=== PATIENT | male | born 2000 | race Caucasian/White ===

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

== ENCOUNTER 2022-05-03 18:28 | Emergency (ER) | payer OTHER, SELFPAY ==
[2022-05-03 19:30] VITALS: RESP 20; TEMP 36.7; O2SAT 100; BMI 24.8
--- NOTE | 2022-05-03 19:32 | EXP.UTC ---
Discharge Plan Disposition Patient Disposition: Home, Self-Care Condition: Good Prescriptions Prescriptions: New sulfamethoxazole-trimethoprim [Bactrim DS] 800-160 mg Tablet 1 tab PO BID Qty: 20 0RF cephalexin 500 mg capsule 500 mg PO QID Qty: 40 0RF mupirocin 2 % ointment 1 applic topical TID 7 Days Qty: 22 0RF Referrals Follow up/Referrals: Bailey Hernandes APRN [Primary Care Provider] - See instructions Activity Restrictions/Add. Instructions Additional Instructions/Restrictions: Apply warm wet compresses to the affected sites three or four times per day for 15 minutes as tolerated. Take the antibiotics as directed and apply the topical antibiotics as directed Follow up with your regular doctor. GO TO THE ER FOR ANY WORSENING SYMPTOMS OR CONCERNS We cultured the wound. This takes 3 days to complete. It should tell which bacteria this is infected by and which antibiotic will treat it best. Please follow up in 3 days with your primary care provider for a wound recheck. Follow up sooner if it is getting worse instead of better. Clinical Impressions Clinical Impression: Abscess of face Stand Alone Forms Stand Alone Forms: Work/School Release Instructions Patient Instructions: Boil Discharge ED Provider: Adarsh Garcia [facility] General Stated complaint: poss bruising on face Time Seen by Provider: 05/03/22 19:32 History of Present Illness Provider Complaint: He states that for the past 4 days he has had a red swollen area on his right cheek. He states that it is getting more swollen and painful. He denies fever/chills. Related Data Previous Rx's Medication Instructions Recorded cephalexin 500 mg capsule 500 mg PO QID #40 caps 05/03/22 mupirocin 2 % topical ointment 1 applic topical TID 7 days #22 05/03/22 grams sulfamethoxazole 800 1 tab PO BID #20 tabs 05/03/22 mg-trimethoprim 160 mg tablet (Bactrim DS) Allergies Allergy/AdvReac Type Severity Reaction Status Date / Time No Known Allergies Allergy Verified 05/03/22 19:45 [facility] Disclaimer: The information contained in this section may have been updated after the patient was seen, as this information can be updated by other users. Medical History Allergic rhinitis Chronic headaches Social History Smoking Status: Former smoker alcohol intake: never counseling provided: none substance use type: marijuana current occupational status: student Travel in the last 8 weeks: None household members: family housing: house ROS Obtained: Yes All systems reviewed & no additional complaints except as documented Constitutional Constitutional: Denies chills and Denies fever(s) Eyes Eyes: Denies eye discharge ENT Ears, Nose, Mouth, and Throat: Denies dizziness, Denies otalgia and Denies sore throat Cardiovascular Cardiovascular: Denies chest pain Respiratory Respiratory: Denies shortness of breath, Denies chest congestion, Denies cough, Denies stridor and Denies wheezing Gastrointestinal Gastrointestingal: Denies nausea or vomiting Musculoskeletal Musculoskeletal: Reports system reviewed and no additional complaints, except as documented and Denies arthralgias Integumentary/Breasts Skin/Breast: Denies rash Neurologic Neurologic: Denies dizziness and Denies paresthesias Allergic/Immunologic Allergic/Immunologic: Denies wheezing Physical Exam General General appearance: alert and in no apparent distress Head Head exam: atraumatic, normocephalic and normal inspection Eye Eye exam: Present normal appearance, PERRL and EOMI ENT ENT exam: Present normal exam, normal oropharynx, mucous membranes moist, TM's normal bilaterally and normal external ear exam Neck Neck exam: Present normal inspection, full ROM and trachea midline; Absent meningismus or lymphadenopathy Chest Chest inspection: Present
[2022-05-03 20:29] VITALS: BP 0/0; PULSE 78; RESP 20; TEMP 36.7; O2SAT 100
== END 2022-05-03 20:20 | disposition home or self-care (01) ==
PROVIDERS: Emergency Provider Nurse Practitioner Family; PCP Nurse Practitioner Family
DX: L02.01 Cutaneous abscess of face (principal)
CPT/HCPCS: 99212; G0463

== ENCOUNTER 2023-02-21 13:33 | Emergency (ER) | payer OTHER, SELFPAY ==
[2023-02-21 13:45] VITALS: BP 148/85; PULSE 91; RESP 18; TEMP 36.8; O2SAT 95; BMI 25.1
--- NOTE | 2023-02-21 13:52 | EXP.UTC ---
Discharge Plan Disposition Patient Disposition: Home, Self-Care Condition: Good Prescriptions Prescriptions: New doxycycline hyclate [doxycycline hyclate] 100 mg capsule 100 mg PO Q12 10 Days Qty: 20 0RF mupirocin 2 % ointment 1 applic topical TID 7 Days Qty: 15 0RF No Action sulfamethoxazole-trimethoprim [Bactrim DS] 800-160 mg Tablet 1 tab PO BID Qty: 20 0RF cephalexin 500 mg capsule 500 mg PO QID Qty: 40 0RF mupirocin 2 % ointment 1 applic topical TID 7 Days Qty: 22 0RF Referrals Follow up/Referrals: Provider,Referral, MD [Primary Care Provider] - See instructions Activity Restrictions/Add. Instructions Additional Instructions/Restrictions: Keep the affected area clean and dry. Follow up with your regular doctor. Take the antibiotics as directed and apply the topical antibiotics as directed. Apply warm wet compresses to the affected area three or four times per day. GO TO THE ER FOR ANY WORSENING SYMPTOMS Clinical Impressions Clinical Impression: Abscess of face Stand Alone Forms Stand Alone Forms: Work/School Release Instructions Patient Instructions: Boil Discharge ED Provider: Adarsh Garcia [facility] General Stated complaint: possible cyst on face, swelling, redness Mode of Arrival: Ambulatory Source of Information: Patient Limitations: No Limitations Time Seen by Provider: 02/21/23 13:52 Description of Symptoms (Recalled from Triage Doc. by RN): A reoccuring spot on left side of his face. Its been there this time for about 3 days. HEENT Symptoms (Recalled from RN notes): Yes Resp Symptoms (Recalled from RN notes): No Skin Symptoms (Recalled from RN notes): No MS Symptoms (Recalled from RN notes): No Functional Status (Recalled from RN notes): n/a History of Present Illness Provider Complaint: He states that he has a painful swollen area on his left facial cheek that has been present for the past 3 days. Related Data Previous Rx's Medication Instructions Recorded cephalexin 500 mg capsule 500 mg PO QID #40 caps 05/03/22 mupirocin 2 % topical ointment 1 applic topical TID 7 days #22 05/03/22 grams sulfamethoxazole 800 1 tab PO BID #20 tabs 05/03/22 mg-trimethoprim 160 mg tablet (Bactrim DS) doxycycline hyclate 100 mg capsule 100 mg PO Q12 10 days #20 caps 02/21/23 mupirocin 2 % topical ointment 1 applic topical TID 7 days #15 02/21/23 grams Allergies Allergy/AdvReac Type Severity Reaction Status Date / Time sulfamethoxazole Allergy Mild Rash Verified 02/21/23 14:01 [From Bactrim] trimethoprim [From Bactrim] Allergy Mild Rash Verified 02/21/23 14:01 Worker's Comp Is this a Worker's Comp case?: No [facility] Disclaimer: The information contained in this section may have been updated after the patient was seen, as this information can be updated by other users. Medical History Allergic rhinitis Chronic headaches Social History Smoking Status: Former smoker tobacco type: e-cigarettes alcohol intake: never counseling provided: none substance use type: marijuana current occupational status: student Travel in the last 8 weeks: None household members: family housing: house ROS Obtained: Yes All systems reviewed & no additional complaints except as documented Constitutional Constitutional: Denies chills and Denies fever(s) Eyes Eyes: Denies eye discharge ENT Ears, Nose, Mouth, and Throat: Denies dizziness, Denies otalgia and Denies sore throat Cardiovascular Cardiovascular: Denies chest pain Respiratory Respiratory: Denies shortness of breath, Denies chest congestion, Denies cough, Denies stridor and Denies wheezing Gastrointestinal Gastrointestingal: Denies nausea or vomiting Musculoskeletal Musculoskeletal: Reports system reviewed and no additional complaints, except as documented and Denies arthralgias I
[2023-02-21 14:30] VITALS: BP 148/85; PULSE 91; RESP 18; TEMP 36.8; O2SAT 95
== END 2023-02-21 14:29 | disposition home or self-care (01) ==
PROVIDERS: Emergency Provider Nurse Practitioner Family
DX: L02.01 Cutaneous abscess of face (principal); J30.9 Allergic rhinitis, unspecified; Z87.891 Personal history of nicotine dependence
CPT/HCPCS: 99212; 99214; G0463

== ENCOUNTER 2023-05-15 16:34 | Emergency (ER) | payer SELFPAY ==
[2023-05-15 17:57] VITALS: BP 126/85; PULSE 80; RESP 18; TEMP 36.6; O2SAT 99; BMI 27.3
--- NOTE | 2023-05-15 18:03 | ED_ITS ---
Discharge Plan Disposition Patient Disposition: Home, Self-Care Condition: Good Prescriptions Prescriptions: New doxycycline hyclate [doxycycline hyclate] 100 mg capsule 100 mg PO Q12 10 Days Qty: 20 1RF mupirocin 2 % ointment 1 applic topical TID 7 Days Qty: 15 0RF No Action sulfamethoxazole-trimethoprim [Bactrim DS] 800-160 mg Tablet 1 tab PO BID Qty: 20 0RF cephalexin 500 mg capsule 500 mg PO QID Qty: 40 0RF mupirocin 2 % ointment 1 applic topical TID 7 Days Qty: 22 0RF doxycycline hyclate [doxycycline hyclate] 100 mg capsule 100 mg PO Q12 10 Days Qty: 20 0RF mupirocin 2 % ointment 1 applic topical TID 7 Days Qty: 15 0RF Referrals Follow up/Referrals: Lona Reardon MD [Referring] - See instructions Provider,MD Elif [Primary Care Provider] - See instructions Activity Restrictions/Add. Instructions Additional Instructions/Restrictions: Keep the affected area clean and dry. Follow up with your regular doctor. Take the antibiotics as directed and apply the topical antibiotics as directed. Follow up with the therapist respiratory (Dr. Reardon) that we put in a referral to. Her office phone number will be on this paper work. Please call her office and schedule an appointment. Apply warm wet compresses to the affected area three or four times per day. GO TO THE ER FOR ANY WORSENING SYMPTOMS Clinical Impressions Clinical Impression: Abscess of face Instructions Patient Instructions: Boil, Doxycycline Discharge ED Provider: Adarsh Garcia [facility] General Stated complaint: spot on right cheek Mode of Arrival: Ambulatory Source of Information: Patient Limitations: No Limitations Time Seen by Provider: 05/15/23 18:03 Description of Symptoms (Recalled from Triage Doc. by RN): pt c/o a recurring abcess on his R side of his face on the cheek. pt states he has had the same thing happen on the L side. pt states he had it cultured here and it came back inconclusive. HEENT Symptoms (Recalled from RN notes): No Resp Symptoms (Recalled from RN notes): No Skin Symptoms (Recalled from RN notes): Yes MS Symptoms (Recalled from RN notes): No Functional Status (Recalled from RN notes): wnl History of Present Illness Provider Complaint: He is back with the recurrent skin abscess that he develops on his face. He states that 2 days ago he began having redness and swelling of his right facial cheek. Related Data Previous Rx's Medication Instructions Recorded cephalexin 500 mg capsule 500 mg PO QID #40 caps 05/03/22 mupirocin 2 % topical ointment 1 applic topical TID 7 days #22 05/03/22 grams sulfamethoxazole 800 1 tab PO BID #20 tabs 05/03/22 mg-trimethoprim 160 mg tablet (Bactrim DS) doxycycline hyclate 100 mg capsule 100 mg PO Q12 10 days #20 caps 02/21/23 mupirocin 2 % topical ointment 1 applic topical TID 7 days #15 02/21/23 grams doxycycline hyclate 100 mg capsule 100 mg PO Q12 10 days #20 caps 05/15/23 mupirocin 2 % topical ointment 1 applic topical TID 7 days #15 05/15/23 grams Allergies Allergy/AdvReac Type Severity Reaction Status Date / Time sulfamethoxazole Allergy Mild Rash Verified 02/21/23 14:01 [From Bactrim] trimethoprim [From Bactrim] Allergy Mild Rash Verified 02/21/23 14:01 Worker's Comp Is this a Worker's Comp case?: No [facility] Disclaimer: The information contained in this section may have been updated after the patient was seen, as this information can be updated by other users. Medical History Allergic rhinitis Chronic headaches Social History Smoking Status: Former smoker tobacco type: e-cigarettes alcohol intake: never counseling provided: none substance use type: marijuana current occupational status: student Travel in the last 8 weeks: None household members: family housing: house ROS Obtained: Yes All systems reviewed & no additional complaints except as documented Constitutional Constitutional: Denies chills and Denies fever(s) Eyes Eyes: Denies eye discharge ENT Ears, Nose, Mouth, and Throat: Denies dizziness, Denies otalgia and Denies sore throat Cardiovascular Cardiovascular: Denies chest pain Respiratory Respiratory: Denies shortness of breath, Denies chest congestion, Denies cough, Denies stridor and Denies wheezing Gastrointestinal Gastrointestingal: Denies nausea or vomiting Musculoskeletal Musculoskeletal: Reports system reviewed and no additional complaints, except as documented and Denies arthralgias Integumentary/Breasts Skin/Breast: Reports as per HPI and Reports wounds Neurologic Neurologic: Denies dizziness and Denies paresthesias Allergic/Immunologic Allergic/Immunologic: Denies wheezing Physical Exam General General appearance: alert and in no apparent distress Head Head exam: atraumatic, normocephalic and normal inspection Eye Eye exam: Present normal appearance, PERRL and EOMI ENT ENT exam: Present normal exam, normal oropharynx, mucous membranes moist, TM's normal bilaterally and normal external ear exam Neck Neck exam: Present normal inspection, full ROM and trachea midline; Absent meningismus or lymphadenopathy Chest Chest inspection: Present normal inspection and symmetric chest wall rise; Absent tenderness Respiratory Respiratory exam: Present normal lung sounds bilaterally; Absent respiratory distress Cardiovascular Cardiovascular exam: Present regular rate and normal rhythm; Absent JVD Abdominal Exam Abdominal exam: Present soft and normal bowel sounds; Absent distention, tenderness or guarding Extremities Exam Extremities exam: Present normal inspection, full ROM and normal capillary refill; Absent calf tenderness Back Exam Back exam: Present normal inspection; Absent tenderness Neurological Exam Neurological exam: Present alert and oriented X3 Psychiatric Psychiatric exam: Present normal affect and normal mood Skin Skin exam: Present other (there is an area of redness on his right facial cheek that measures 2 cm diameter, no induration or open wound noted. no drainage. ) Lymphatic Lymphatic Findings: no adenopathy Medical Decision Making Medical Records Medical records reviewed: No I reviewed the patient's medical records. Reza Inquiry Pt receiving controlled substance: No Vital Signs: 05/15/23 17:57 Temperature 98 F Temperature Source Oral Pulse Rate [Left] 80 Respiratory Rate 18 Blood Pressure [Right Arm] 126/85 Blood Pressure Mean [Right Arm] 98 Blood Pressure Source [Right Arm] Automatic Cuff Blood Pressure Position [Right Arm] Sitting 02 Sat by Pulse Oximetry 99 Oxygen Delivery Method Room Air
[2023-05-15 18:28] VITALS: BP 126/85; PULSE 18; RESP 18; TEMP 36.7; O2SAT 99
== END 2023-05-15 18:28 | disposition home or self-care (01) ==
PROVIDERS: Emergency Provider Nurse Practitioner Family
DX: L02.01 Cutaneous abscess of face (principal)
CPT/HCPCS: 99212; 99214; G0463

== ENCOUNTER 2023-05-19 13:46 | Emergency (ER) | payer SELFPAY ==
[2023-05-19 13:46] VITALS: BP 131/85; PULSE 82; RESP 14; TEMP 36.8; O2SAT 96; BMI 27.4
[2023-05-19 13:52] VITALS: BP 112/86; PULSE 80; RESP 14; O2SAT 97
[2023-05-19 14:50] VITALS: BP 122/70; PULSE 80; RESP 18; TEMP 36.8; O2SAT 99
--- NOTE | 2023-05-19 14:54 | PC.NURSE ---
PT FOUND OUT THAT HIS INSURANCE HAS LAPSED, DID NOT WANT TO COME TO HOSPITAL FROM PCP. REQUESTS TO LEAVE. EDUCATED TO RETURN WITH ANY CONCERNS. VSS, PT FEELING BETTER. NO NEEDS OR CONCERNS AT THIS TIME
== END 2023-05-19 14:50 | disposition left against medical advice (07) ==
PROVIDERS: Emergency Provider Emergency Medicine
DX: Z53.21 Procedure and treatment not carried out due to patient leaving prior to being seen by health care provider (principal)
CPT/HCPCS: 99211

== ENCOUNTER 2024-06-07 09:19 | Emergency (ER) | payer OTHER, SELFPAY ==
[2024-06-07 09:21] VITALS: BP 136/87; PULSE 81; RESP 19; TEMP 37; O2SAT 99; BMI 25.7
--- NOTE | 2024-06-07 09:30 | PC.NURSE ---
Strep & covid/flu swab sent to lab.
[2024-06-07 09:31] VITALS: BP 130/86; PULSE 94; O2SAT 98
[2024-06-07 09:32] LABS: Coronavirus 19, PCR Not Detected (NotDetected); Influenza A, PCR Not Detected (NotDetected); Influenza B, PCR Not Detected (NotDetected)
[2024-06-07 09:49] LABS: Strep Scrn Group A (Rapid) Positive (Negative)
--- NOTE | 2024-06-07 10:05 | PC.NURSE ---
DR CAVAZOS AT BEDSIDE
[2024-06-07] MEDS: IBUPROFEN 400 MG TABLET 800 MG PO (10:15)
[2024-06-07] MEDS: AMOXICILLIN 500MG CAPSULE 500 MG PO (10:15)
[2024-06-07] MEDS: ONDANSETRON 4MG ODT 4 MG SL (10:15)
[2024-06-07] MEDS: ACETAMINOPHEN 500MG TAB 1000 MG PO (10:15)
--- NOTE | 2024-06-07 10:16 | PC.NURSE ---
PT MEDICATED PER EMAR, UPDATED ON POC. NO NEEDS AT THIS TIME. CALL LIGHT WITHIN REACH
--- NOTE | 2024-06-07 10:25 | ED_ITS ---
Discharge Plan Disposition Patient Disposition: Home, Self-Care Condition: Good Prescriptions Prescriptions: New amoxicillin 500 mg tablet 500 mg PO BID 10 Days Qty: 20 0RF Referrals Follow up/Referrals: Provider,Referral, MD [Primary Care Provider] - See instructions Activity Restrictions/Add. Instructions Additional Instructions/Restrictions: You were evaluated in the emergency department today and diagnosed with strep. Please sweet pickle maker your prescription for antibiotic at the pharmacy and take the full course as prescribed. Take Tylenol and ibuprofen every 4-6 hours as needed for pain. Follow-up closely with your primary care provider. Return to the emergency department for new or worsening symptoms Clinical Impressions Clinical Impression: Acute streptococcal pharyngitis Stand Alone Forms Stand Alone Forms: Work/School Release Instructions Patient Instructions: DI for Strep Throat Print Language Print Language: [place] Discharge ED Provider: Rupinder Gary General Adult HPI General Chief complaint: Upper Respiratory Infection Stated complaint: sore throat, fever Time Seen by Provider: 06/07/24 09:48 Mode of Arrival: Family Vehicle Source of Information: Patient, Significant Other and Medical Record Limitations: No Limitations Description of Symptoms (Recalled from ER Triage Doc. by RN): Pt c/o sore throat, congestion, and recent fever/flu-like symtoms that have improved. States symtoms started Monday (06/04). He had fever with t-max 103. Tonsils are swollen, red, and have plaques presents. No medications this AM. Denies any significant PMH. Reports his throat pain presents his from eating and drinking well. History of Present Illness HPI narrative: This patient is a 24-year-old male who denies significant past medical history presenting to the emergency department for evaluation with concern for sore throat. Patient states that he has had flulike symptoms recently that improved with the exception of sore throat. His symptoms started 06/04 and the only thing that is persistent at this time is sore throat and swollen lymph nodes in his neck. He has had fevers and congestion as well, which seem to be improved. No abdominal pain, vomiting, or other concerns. No difficulty swallowing or breathing, but he does have pain when eating and drinking. Related Data Previous Rx's ?Medication ?Instructions ?Recorded amoxicillin 500 mg tablet 500 mg PO BID 10 days #20 tabs 06/07/24 Allergies Allergy/AdvReac Type Severity Reaction Status Date / Time sulfamethoxazole (From Allergy Mild Rash Verified 05/19/23 13:18 Bactrim) trimethoprim (From Bactrim) Allergy Mild Rash Verified 05/19/23 13:18 [facility] Disclaimer: The information contained in this section may have been updated after the patient was seen, as this information can be updated by other users. Medical History Allergic rhinitis Chronic headaches Surgical History No history of previous surgery Social History Smoking Status: Current every day smoker tobacco type: e-cigarettes alcohol intake: never counseling provided: none substance use type: denies use and marijuana current occupational status: employed and student Travel in the last 8 weeks: None household members: family housing: house Have you lived/traveled outside US in past 30 days?: No Contact w/someone who lives/traveled outside US past 30 days?: No Exposure to someone with infectious disease in past 14 days?: No Do you have a fever (greater than 100.4 F or 38 C)?: Yes Have you tested positive for COVID-19: No Exposed to someone with COVID-19 in past 14 days?: No Do you have a sore throat?: Yes Do you have a cough?: No Do you have any weakness?: No Do you have any diarrhea?: No Are you experiencing any unusual bleeding?: No Do you have any muscle aches/pain?: No Do you have any abdominal pain?: No Are you experiencing loss of taste or smell?: No Other Medical History Have you received the Flu Vaccine for this season: Yes Have you received the Pneumonia Vaccine: No ROS Obtained: Yes All systems reviewed & no additional complaints except as documented Physical Exam General General appearance: alert and in no apparent distress Head Head exam: atraumatic and normocephalic Eye Eye exam: Present normal appearance, PERRL and EOMI ENT ENT exam: Present mucous membranes moist, normal external ear exam and other (Bilateral tonsillar erythema, edema, and exudates with no uvular deviation, no airway compromise. No drooling, stridor, trismus.) Neck Neck exam: Present normal inspection, full ROM and trachea midline; Absent tenderness Chest Chest inspection: Present normal inspection and symmetric chest wall rise; Absent tenderness Respiratory Respiratory exam: Present normal lung sounds bilaterally; Absent respiratory distress, wheezes, stridor or accessory muscle use Cardiovascular Cardiovascular exam: Present regular rate and normal rhythm Abdominal Exam Abdominal exam: Present soft; Absent distention, tenderness or guarding Extremities Exam Extremities exam: Present normal inspection, full ROM and normal capillary refill; Absent tenderness or edema Back Exam Back exam: Present normal inspection and full ROM; Absent tenderness Neurological Exam Neurological exam: Present alert, oriented X3, CN II-XII intact and normal gait; Absent motor sensory deficit Psychiatric Psychiatric exam: Present normal affect and normal mood Skin Skin exam: Present warm and dry Medical Decision Making Medical Records Medical records reviewed: Yes I reviewed the patient's medical records. Screening: Per USPSTF and CDC recommendations, given the prevalence of disease in our region, it is our hospital?s policy to screen for HIV and viral Hepatitis for all patients aged 18 and over and those with ongoing risk factors. Reza Inquiry Pt receiving controlled substance: No Vital Signs: 06/07/24 09:21 06/07/24 09:31 Temperature 98.6 F Temperature Source Oral Pulse Rate 94 H Pulse Rate [Right] 81 Respiratory Rate 19 Blood Pressure 130/86 Blood Pressure [Right Arm] 136/87 Blood Pressure Mean [Right Arm] 103 Blood Pressure Source [Right Arm] Automatic Cuff 02 Sat by Pulse Oximetry 99 98 Oxygen Delivery Method Room Air Lab Data Lab results reviewed: Yes I reviewed the patient's lab results. Lab Results 06/07/24 09:27: SARS-CoV-2 (PCR) Not detected, Influenza A Untype (PCR) Not detected, Influenza Type B (PCR) Not detected, Group A Strep Rapid Positive A Orders (Tests/Meds): ED MEDICATIONS Discontinued Medications Generic Name Dose Route Start Last Admin Trade Name Freq PRN Reason Stop Dose Admin Acetaminophen 1,000 mg 06/07/24 10:06/07/24 10:15 Acetaminophen 500mg Tab PO 06/07/24 10:10 1,000 mg ONCE ONE Administration Amoxicillin 500 mg 06/07/24 10:06/07/24 10:15 Amoxicillin 500mg Capsule PO 06/07/24 10:10 500 mg ONCE ONE Administration Ibuprofen 800 mg 06/07/24 10:06/07/24 10:15 Ibuprofen 400 Mg Tablet PO 06/07/24 10:10 800 mg ONCE ONE Administration Ondansetron HCl 4 mg 06/07/24 10:09 06/07/24 10:15 Ondansetron 4mg Odt SL 06/07/24 10:10 4 mg ONCE ONE Administration ORDERS Category Date Time Status Rapid PCR Covid and Flu A/B Stat Lab 06/07/24 09:27 Completed Strep Scrn Group A (Rapid) Stat Lab 06/07/24 09:27 Completed Medical Decision Narrative: In summary, this patient is a 24-year-old male presenting to the Emergency Department for evaluation of sore throat, fever, swollen lymph nodes in the neck, congestion. Differential diagnoses considered include but are not limited to viral syndrome, strep pharyngitis, infectious mononucleosis. Ruling out the most morbid conditions drove assessment. On exam, patient has posterior oropharyngeal erythema, edema, exudates without uvular deviation or obvious concern for abscess. No drooling, stridor, trismus, muffled voice, or other concerns. He is well-appearing. Strep swabs and viral swabs were sent. Based on reassuring history and exam, I do not feel that other labs or imaging are indicated at this time. He is positive for strep, so he was given oral Tylenol, ibuprofen, Zofran, and amoxicillin for treatment. On reassessment, patient is feeling better. Given this, I feel it is appropriate for discharge home with prescription for amoxicillin and close follow-up with primary care. Strict return precautions given. Critical Care Critical Care Time Critical Care Time: No
[2024-06-07 10:35] VITALS: BP 128/80; PULSE 88; RESP 16; TEMP 37; O2SAT 99
== END 2024-06-07 10:35 | disposition home or self-care (01) ==
PROVIDERS: Emergency Provider Emergency Medicine
DX: J02.0 Streptococcal pharyngitis (principal); R50.9 Fever, unspecified; R09.81 Nasal congestion; J02.9 Acute pharyngitis, unspecified; M54.2 Cervicalgia; F17.290 Nicotine dependence, other tobacco product, uncomplicated
CPT/HCPCS: 87430; 87636; 99283; Q0162

== ENCOUNTER 2024-12-13 14:46 | Emergency (ER) | payer OTHER, SELFPAY ==
[2024-12-13 14:48] VITALS: BP 174/102; PULSE 84; RESP 18; TEMP 36.5; O2SAT 99; BMI 25.8
--- NOTE | 2024-12-13 16:15 | HMH.EDGENADL ---
Discharge Plan Disposition Patient Disposition: Home, Self-Care Prescriptions Prescriptions: No Action doxycycline hyclate 100 mg capsule 100 mg PO BID 10 Days Qty: 20 0RF mupirocin [Centany] 2 % ointment 1 applic topical TID Qty: 22 0RF Rx Instructions: apply to lesion as directed Referrals Follow up/Referrals: Hadley Melendez MD [Referring, Medical] - See instructions Provider,MD Elif [Primary Care Provider, Medical] - See instructions Activity Restrictions/Add. Instructions Additional Instructions/Restrictions: As discussed you have a very small superficial abscess of your face with surrounding cellulitis. I offered incision and drainage in addition to the antibiotic she started yesterday however you declined this at the moment. Please do warm compresses and continue your antibiotics as discussed give it 48 hours from the time of initiation of your antibiotics to see if you are improving otherwise you come back to the emergency department at any time with worsening of your symptoms. Return with any high fevers or other concerns. Clinical Impressions Clinical Impression: Abscess of face, Cellulitis of face Instructions Patient Instructions: DI for Laceration Repair Print Language Print Language: Burkinan Discharge ED Provider: Karan Feliciano Adult HPI General Chief complaint: Wound/Laceration Stated complaint: Infection L side of face Time Seen by Provider: 12/13/24 15:56 Mode of Arrival: Ambulatory Source of Information: Patient Description of Symptoms (Recalled from ER Triage Doc. by RN): patient presents to the ED for a left sided facial cyst. This has happened in the past. He has taken doxycycline in the past for similar things. PAtient also states he has had vision changes associated with it. Lindy describes these vision changes as a buldge that he sees. History of Present Illness HPI narrative: Patient is a 24-year-old male with a history of cystic acne who presents today with a left-sided facial abscess that has worsened over the last several days he saw [facility] yesterday started doxycycline but was worried this morning given the worsening of the swelling that it was having an allergic reaction therefore he stopped the antibiotics at that time. Denies any fevers or chills. Denies any changes in vision etc. No pain with extraocular movements etc. Does have a history of this cystic area recurring multiple times but is never gotten this bad in the past. Related Data Previous Rx's ?Medication ?Instructions ?Recorded doxycycline hyclate 100 mg capsule 100 mg PO BID 10 days #20 caps 12/12/24 mupirocin 2 % topical ointment 1 applic topical TID #22 grams 12/12/24 (Centany) Allergies Allergy/AdvReac Type Severity Reaction Status Date / Time sulfamethoxazole (From Allergy Mild Rash Verified 12/12/24 17:37 Bactrim) trimethoprim (From Bactrim) Allergy Mild Rash Verified 12/12/24 17:37 [facility] Disclaimer: The information contained in this section may have been updated after the patient was seen, as this information can be updated by other users. Medical History (Updated 12/13/24 @ 16:15 by Tamia Hendricks MD) Cystic acne Allergic rhinitis Chronic headaches Surgical History No history of previous surgery Social History Smoking Status: Never smoker alcohol intake: never counseling provided: none substance use type: denies use and marijuana current occupational status: employed and student Travel in the last 8 weeks?: None household members: family housing: house Have you lived/traveled outside US in past 30 days?: No Contact w/someone who lives/traveled outside US past 30 days?: No Exposure to someone with infectious disease in past 14 days?: No Do you have a fever (greater than 100.4 F or 38 C)?: No Have you tested positive for COVID-19?: No Exposed to someone with COVID-19 in past 14 days?: No Do you have a sore throat?: No Do you have a cough?: No Do you have any weakness?: No Do you have any diarrhea?: No Are you experiencing any unusual bleeding?: No Do you have any muscle aches/pain?: No Do you have any abdominal pain?: No Are you experiencing loss of taste or smell?: No Other Medical History Have you received the Flu Vaccine for this season: Yes Have you received the Pneumonia Vaccine: No ROS Obtained: Yes All systems reviewed & no additional complaints except as documented Physical Exam General General appearance: alert and in no apparent distress Expanded Head Exam Head image:  1. Superficial fluctuant area of erythema and tenderness 2. Swelling and tenderness Eye Eye exam: Present other (No pain with extraocular movements no proptosis vision is normal) Respiratory Respiratory exam: Present normal lung sounds bilaterally Cardiovascular Cardiovascular exam: Present regular rate Neurological Exam Neurological exam: Present alert and oriented X3 Medical Decision Making Medical Records Screening: Per USPSTF and CDC recommendations, given the prevalence of disease in our region, it is our hospital?s policy to screen for HIV and viral Hepatitis for all patients aged 18 and over and those with ongoing risk factors. Reza Inquiry Pt receiving controlled substance: No Vital Signs: 12/13/24 14:48 12/13/24 16:20 Temperature 97.7 F 98.0 F Temperature Source Temporal Artery Scan Pulse Rate 82 Pulse Rate [Right Radial] 84 Respiratory Rate 18 16 Blood Pressure 141/96 H Blood Pressure [Left Arm] 174/102 H Blood Pressure Mean [Left Arm] 126 Blood Pressure Source [Left Arm] Automatic Cuff Blood Pressure Position [Left Arm] Sitting 02 Sat by Pulse Oximetry 99 Oxygen Delivery Method Room Air Orders (Tests/Meds): ORDERS Category Date Time Status POCUS Point of Care (ER Only) Stat Exams 12/13/24 16:00 Ordered Medical Decision Narrative: Patient with above history and physical consistent with abscess and cellulitis. Bedside ultrasound demonstrated a localized drainable fluid collection however the patient is afraid of needles and did not want an incision and drainage and will try the warm compresses at home and continue his antibiotics he will return with change of mind or any worsening of his symptoms. Procedures Miscellaneous Procedure Procedure Performed: Limited soft tissue ultrasound Indication: Facial swelling Identified structures: Location: Left cheek area Findings: There is a 1 x 0.5 cm localized fluid collection with surrounding soft tissue cobblestoning Impression: Findings consistent with a localized interval fluid collection, and abscess with surrounding cellulitis Images were saved to permanent archive The study was technically adequate Soft Tissue CPT Codes: CPT Neck: 19472-62 CPT Upper extremity: 36471-19 CPT Axilla: 76129-41 CPT Chest wall: 93837-86 CPT Breast: 72039-39-RQ/LT (complete), 54024-47-UI/LT (limited), CPT Upper Back: 69945-03 CPT Lower Back: 97114-71 CPT Abdominal Wall: 23642-86 CPT Pelvic Wall: 09927-09 CPT Lower Extremity: 71650-39 CPT Other Soft Tissue: 99248-82 This study was performed by me, and I personally interpreted all images/videos. Based on my clinical judgement, these images were adequate and did not necessitate further imaging. Critical Care Critical Care Time Critical Care Time: No
[2024-12-13 16:20] VITALS: BP 141/96; PULSE 82; RESP 16; TEMP 36.7; O2SAT 99
== END 2024-12-13 16:21 | disposition home or self-care (01) ==
PROVIDERS: Emergency Provider Student in an Organized Health Care Education/Training Program
DX: L02.01 Cutaneous abscess of face (principal); L03.211 Cellulitis of face
CPT/HCPCS: 99282; 99283